=== PATIENT | male | born 1950 | race Caucasian/White ===

== ENCOUNTER 2017-11-29 13:18 | Observation (INO) | payer BC, MEDICARE ==
[2017-11-29 14:04] LABS: #Eosinphils 0.1 thou/uL (0.0-0.7); #Lymphocytes 1.3 thou/uL (1.20-3.40); #Monocytes 0.6 thou/uL (0.11-0.59); #Neutrophils 10.2 thou/uL (1.40-6.50); %Basophils 0.4 % (0.0-1.0); %Eosinophils 0.5 % (0.0-10.0); %Lymphocytes 10.7 % (21.0-51.0); %Monocytes 4.9 % (0.0-10.0); %Neutrophils 83.7 % (42.0-75.0); Hemoglobin 13.8 g/dL (14.0-18.0); Mean Corpuscular HGB CONC 32.5 g/dL (32.0-36.0); Mean Corpuscular Volume 95.4 fl (80.0-94.0); Mean Platelet Volume 6.8 fL (7.4-10.4); Platelet Count 292 thou/uL (130-400); RBC Distribution Width 11.7 % (11.5-14.5); Red Blood Cell (RBC) Count 4.46 mill/uL (4.70-6.10); White Blood Cell (WBC) Count 12.2 thou/uL (4.8-10.8)
[2017-11-29 14:30] LABS: ALT (SGPT) 32 U/L (8-55); AST (SGOT) 24 U/L (5-34); Albumin 4.6 g/dL (3.4-4.8); Alkaline Phosphatase 48 U/L (40-150); Anion Gap 16 mmol/L (10-20); BUN (Urea Nitrogen) 13 mg/dL (8.4-25.7); Bilirubin, Total 0.8 mg/dL (0.2-1.2); Calc. Creatinine Clearance 0 mL/min (70-130); Calcium 10.4 mg/dL (7.8-10.44); Carbon Dioxide 23 mmol/L (23-31); Chloride 104 mmol/L (98-107); Estimated GFR-MDRD 74; Globulin 3.2 g/dL (2.4-3.5); Glucose 161 mg/dL (80-115); Potassium 4.3 mmol/L (3.5-5.1); Protein, Total 7.8 g/dL (5.8-8.1); Sodium 139 mmol/L (136-145)
[2017-11-29] MEDS ORDERED: Ondansetron HCl/PF 4 MG/2 ML Vial ONE (15:53)
[2017-11-29 16:16] LABS: Bilirubin Negative (Negative); Blood, Urine Negative (Negative); Clarity CLEAR (Clear); Glucose, Urine (Dipstick) 250 mg/dL (Negative); Leukocyte Trace (Negative); Nitrite Negative (Negative); Protein, Urine (Dipstick) 100 mg/dL (Neg-Trace); Specific Gravity, Urine 1.027 (1.002-1.036); Urobilinogen 0.2 mg/dL (0.2-1.0); pH, Urine 5.5 (5.0-9.0)
[2017-11-29 16:16] LABS: PTT 29.3 SEC (22.9-36.1); Prothrombin Time 12.9 SEC (12.0-14.7)
[2017-11-29 16:18] LABS: Bacteria/HPF None Seen HPF (None Seen); Hyaline Casts/LPF 0-3 HYALINE CAST LPF (0-3 Hyaline); Pathc Cast-AUWi Flag 0.27 (0-2.49); Squamous Epithelial 0-3 HPF (0-3)
[2017-11-29 16:26] LABS: Amphetamine Not Detected (NotDetected); Barbiturates Screen Not Detected (NotDetected); Benzodiazepine Screen Not Detected (NotDetected); Cocaine Metabolite Screen Not Detected (NotDetected); Medtox Control Line Valid? VALID (VALID); Medtox Reader # READER 4; Methadone Not Detected (NotDetected); Methamphetamine Not Detected (NotDetected); Opiate Screen Not Detected (NotDetected); Oxycodone Screen Not Detected (NotDetected); Phencyclidine (PCP) Not Detected (NotDetected); THC/Cannabinoid Screen Not Detected (NotDetected); Tricyclic Screen Not Detected (NotDetected)
[2017-11-29 16:27] LABS: CKMB 6.1 ng/mL (0-6.6); Troponin I Less than 0.010 ng/mL (< 0.028)
--- NOTE | 2017-11-29 16:38 | RAD ---
AP VIEW OF THE CHEST: INDICATION: Vomiting and dizziness. IMPRESSION: No acute cardiopulmonary abnormality. The exam does not appear appreciably changed from comparison d ated 10/16/2014. Cardiomegaly is stable. No airspace opacity or pleural effusion is noted. No acut e osseous abnormality is evident. POS: [facility]
--- NOTE | 2017-11-29 17:19 | CT ---
CT OF THE BRAIN WITHOUT CONTRAST: INDICATION: Dizziness and vomiting since this morning. COMPARISON: None. FINDINGS: No acute infarct, hemorrhage, or hydrocephalus is present. The septum pellucidum and third ventricle are midline. There is mild chronic small vessel white matter ischemic change. There are prominent perivascular spaces along the inferior aspect of both globus pallidi. There is a mucus-retention cys t in the left maxillary sinus. The mastoid air cells are clear. There is an extraaxial partially ca lcified mass seen overlying the right frontal convexity measuring 7 mm suspicious for a small meningi sariah. This does not appear to be causing any significant underlying mass effect. IMPRESSION: 1. No acute intracranial abnormality. 2. Small calcified extraaxial mass overlying the right frontal convexity that may reflect a small men ingioma without significant associated mass effect. 3. Mild chronic small-vessel white matter ischemic change. 4. Mucus-retention cyst seen within the left maxillary sinus. POS: [facility]
[2017-11-29 17:53] LABS: Troponin I Less than 0.010 ng/mL (< 0.028)
[2017-11-29] MEDS ORDERED: Sodium Chloride 0.9% 1,000 ML IV SCH (18:45)
[2017-11-29] MEDS ORDERED: Senokot 8.6 MG TAB PO PRN ×2 (18:45→20:09)
[2017-11-29] MEDS ORDERED: HumaLOG 300 UNITS/3 ML VIAL SC PRN ×2 (18:45→20:09)
[2017-11-29] MEDS ORDERED: Ondansetron HCl/PF 4 MG/2 ML Vial IVP PRN ×2 (18:45→20:09)
[2017-11-29] MEDS ORDERED: Dextrose 50% Abboject 50 ML SYRINGE SLOW IVP PRN ×2 (18:45→20:07)
[2017-11-29] MEDS ORDERED: Guaifenesin DM 100-10/5 ML UDCUP PO PRN ×2 (18:45→20:08)
[2017-11-29] MEDS ORDERED: Acetaminophen 325 MG TAB PO PRN ×2 (18:45→20:06)
[2017-11-29] MEDS ORDERED: Dextrose 5% in Water 1,000 ML IV PRN ×2 (18:45→20:07)
[2017-11-29] MEDS ORDERED: Promethazine HCl 25 MG/ML VIAL IM/IV PRN ×2 (18:52→20:10)
--- NOTE | 2017-11-29 19:26 | HP ---
REASON FOR ADMISSION: Dizziness, dehydration, intractable nausea and vomiting. HISTORY OF PRESENT ILLNESS: The patient gives history of vomiting, nearly 21 times, this is mostly retching and spitting up, looks like. He has not been able to eat or drink anything from last evening. He managed to keep a cup of coffee this morning. He says 3 weeks back, he had flu and was put on antibiotics for [address] Valery Batista, his primary care physician. Since then, he has been not really well. He states if he closes his eyes, he feels nauseous at present. No complaints of any weakness in any of the extremities. No complaints of neck pain or stiffness. No chest pain, palpitation, PND, or orthopnea. Has not had any fever. Has some dry cough, but no expectoration. PAST MEDICAL AND SURGICAL HISTORY: History of diabetes mellitus type 2, dyslipidemia, benign prostatic hypertrophy, tonsillectomy. CURRENT MEDICATIONS: Metformin daily, pravastatin 40 mg at bedtime, Flomax 0.4 mg at bedtime. ALLERGIES: No known drug allergies. PERSONAL HISTORY: Does not abuse alcohol or drugs. No history of smoking. Lives with his , drives a truck. FAMILY HISTORY: Mom of emphysema and its complications at the age of 55 years. Father is still living and is 91 years old. REVIEW OF SYSTEMS: The following complete review of systems was negative, unless otherwise mentioned in the HPI or below: Constitutional: Weight loss or gain, ability to conduct usual activities. Skin: Rash, itching. Eyes: Double vision, pain. ENT/Mouth: Nose bleeding, neck stiffness, pain, tenderness. Cardiovascular: Palpitations, dyspnea on exertion, orthopnea. Respiratory: Shortness of breath, wheezing, cough, hemoptysis, fever or night sweats. Gastrointestinal: Poor appetite, abdominal pain, heartburn, nausea, vomiting, constipation, or diarrhea. Genitourinary: Urgency, frequency, dysuria, nocturia. Musculoskeletal: Pain, swelling. Neurologic/Psychiatric: Anxiety, depression. Allergy/Immunologic: Skin rash, bleeding tendency. PHYSICAL EXAMINATION: GENERAL: Patient is a 67-year-old male who is currently not in any acute distress. VITAL SIGNS: Blood pressure 144/94, pulse 90 per minute, respiratory rate 20 per minute, temperature 97.1 degrees Fahrenheit, saturating 95% on room air. NECK: Supple, no elevated JVD. HEENT: Extraocular muscles intact. Pupils are reacting to light. Oral cavity mucous membranes are dry. No exudates or congestion. CARDIOVASCULAR: S1, S2 heard. Regular rhythm. RESPIRATORY: Air entry 2+ bilateral. No rales or rhonchi. ABDOMEN: Soft, bowel sounds heard. No tenderness, rigidity or guarding. EXTREMITIES: No peripheral edema or calf tenderness. VASCULAR SYSTEM: Peripheral pulses 1+ bilateral. No ischemic ulcerations or gangrene. CENTRAL NERVOUS SYSTEM: No gross focal deficits seen. The patient is awake, alert, and oriented well. PSYCHIATRIC: The patient's mood is euthymic. No hallucinations or delusions. LABORATORY AND X-RAY FINDINGS: Influenza A and B antigens are negative. Chest x-ray done shows no acute infiltrate. CT brain shows no acute intracranial abnormality. There is a small calcified extraaxial mass over the right frontal convexity might reflect small meningioma without associated mass effect. Urine drug screen is negative. UA shows trace leukocyte esterase with 7-10 WBCs, no bacteria were seen. Troponin x2 is negative. Serum glucose 161. Serum chloride is 104, serum bicarbonate 23, BUN 13, creatinine 1.0. CK level is 340 , albumin is 4.6. White count of 12, H&H 13 and 42, platelet count is 292 with 83% neutrophils. CLINICAL IMPRESSION AND PLAN: The patient will be under observation on the stroke unit for intractable nausea and vomiting with [id number] dehydration and margination. We will place him on normal saline at 100 mL per hour. We will continue his home medications of aspirin, metformin, pravastatin , and Flomax as before. We will also obtain a lipase level. He will be on clear liquid diet for tonight and will advance his diet once his nausea and vomiting resolves. He will be on Zofran and Phenergan p.r.n. The patient does not appear to have any stroke clinically. Once he is able to tolerate solid food, he can be safely discharged home. KATHLEEN
[2017-11-29] MEDS: Famotidine/PF 20 mg/2ml Vial SLOW IVP SCH (20:35)
[2017-11-29] MEDS: Sodium Chloride 0.9% 1,000 ML IV SCH (20:35)
[2017-11-29] MEDS ORDERED: Famotidine/PF 20 mg/2ml Vial SLOW IVP SCH (21:00)
[2017-11-29] MEDS ORDERED: Tamsulosin HCl 0.4 MG CAP PO SCH (21:00)
[2017-11-29] MEDS ORDERED: Pravastatin Sodium 40 MG TAB PO SCH ×2 (21:00)
[2017-11-29 21:27] VITALS: BMI 34.5
[2017-11-30] MEDS: Sodium Chloride 0.9% 1,000 ML IV SCH (04:11)
[2017-11-30] MEDS ORDERED: metFORMIN 500 MG TAB PO SCH ×2 (08:00)
[2017-11-30 08:19] VITALS: BP 158/85; TEMP 98.1
[2017-11-30] MEDS ORDERED: Aspirin 81 mg Enteric Coated Tablet PO SCH ×2 (09:00)
[2017-11-30] MEDS ORDERED: Tamsulosin HCl 0.4 MG CAP PO SCH ×2 (09:00)
[2017-11-30] MEDS ORDERED: Enoxaparin Sodium 40 MG/0.4 ML SYRINGE SC SCH ×2 (09:00)
[2017-11-30] MEDS ORDERED: Prevnar 13-Val Conj/PF 0.5 ML SYRINGE IM ONE (09:00)
[2017-11-30] MEDS: Famotidine/PF 20 mg/2ml Vial SLOW IVP SCH (09:35)
--- NOTE | 2017-11-30 11:43 | PDOC.PN ---
- Subjective Encounter Start Date: 11/30/17 Encounter Start Time: 11:42 Patient seen and examined. No new complaints. No overnight events. wanna go home feels good. tolerating food well. wants to see neurology as outpt. - Objective Resuscitation Status: Resuscitation Status FULL:Full Resuscitation MAR Reviewed: Yes Vital Signs & Weight: Vital Signs (12 hours) Temp Pulse Resp BP Pulse Ox 11/30/17 07:36 98.1 F 92 16 158/85 H 94 L 11/30/17 07:20 98.3 F 100 14 11/30/17 04:12 98.3 F 100 14 161/93 H 94 L 11/29/17 23:55 98.4 F 98 14 135/74 95 Weight Weight 254 lb 12.8 oz I&O: 11/29/17 11/30/17 12/01/17 06:59 06:59 06:59 Intake Total 1480 1 Balance 1480 1 Result Diagrams: 11/29/17 13:54 11/29/17 13:54 Additional Labs: Accuchecks 11/30/17 11/30/17 11/29/17 10:55 04:17 20:58 POC Glucose 211 H 104 172 H Phys Exam - Physical Examination Constitutional: NAD HEENT: sclera anicteric Neck: supple Respiratory: no wheezing, no rales Cardiovascular: RRR Gastrointestinal: soft Musculoskeletal: no edema Neurological: non-focal, moves all 4 limbs Psychiatric: normal affect, A&O x 3 Dx/Plan (1) Dizziness Code(s): R42 - DIZZINESS AND GIDDINESS Status: Acute (2) Nausea & vomiting Code(s): R11.2 - NAUSEA WITH VOMITING, UNSPECIFIED Status: Acute (3) Diabetes mellitus Code(s): E11.9 - TYPE 2 DIABETES MELLITUS WITHOUT COMPLICATIONS Status: Acute (4) HTN (hypertension) Code(s): I10 - ESSENTIAL (PRIMARY) HYPERTENSION Status: Acute (5) Meningioma Code(s): D32.9 - BENIGN NEOPLASM OF MENINGES, UNSPECIFIED Status: Acute - Plan cont current plan of care * . Pt feeling better. wants to go home f/u with neurology at outpatient.
--- NOTE | 2017-11-30 19:01 | DIS ---
DATE OF ADMISSION: 11/29/2017 DATE OF DISCHARGE: 11/30/2017 DISCHARGE DIAGNOSES: 1. Dizziness, nausea, vomiting, and visual disturbances; resolved. 2. Type 2 diabetes. 3. Benign prostatic hypertrophy. 4. Hypertension. 5. Hyperlipidemia. 6. Meningioma. CONSULTATIONS: None. PROCEDURE: CT head with meningioma. HOSPITAL COURSE: This is a 67-year-old male with a history of type 2 diabetes, hyperlipidemia, and B PH came to the hospital with nausea, vomiting, and had 23 episodes of vomiting with some dehydration. He was admitted and overnight had hydration and was feeling better. The patient was able to tolera te food and will be sent home safely. The patient also had a CT scan, which was unremarkable except for a possible meningioma. The patient does not want to have any workup here. He wants to see his [facility] physician and will be seen by Neurology as outpatient. The patient wants to go home. DISCHARGE MEDICATIONS: Lisinopril 5 mg p.o. daily, metformin 500 mg p.o. b.i.d., tamsulosin 0.4 mg p .o. at bedtime, and Lipitor. ALLERGIES: No known drug allergies. DISCHARGE INSTRUCTIONS: Follow up with PCP in 1 week and possible Neurology followup with [facility] in 1-2 weeks for possible meningioma and visual disturbances, which happened only once. CONDITION ON DISCHARGE: Stable. DISPOSITION: To home. The patient voiced understanding and he wants to go home and work up symptoms otherwise with Neurology as outpatient.
== END 2017-11-30 12:48 | disposition home or self-care (01) ==
LOC: ERS 13:18 → 2SW 17:15 → ERS 18:57
PROVIDERS: ADMIT Internal Medicine; ATTEND Internal Medicine
DX: R42 Dizziness and giddiness (principal); R11.2 Nausea with vomiting, unspecified; E11.9 Type 2 diabetes mellitus without complications; N40.0 Benign prostatic hyperplasia without lower urinary tract symptoms; I10 Essential (primary) hypertension; E78.5 Hyperlipidemia, unspecified; D32.9 Benign neoplasm of meninges, unspecified; Z79.82 Long term (current) use of aspirin; Z79.84 Long term (current) use of oral hypoglycemic drugs; Z79.899 Other long term (current) drug therapy; Z90.49 Acquired absence of other specified parts of digestive tract; Z23 Encounter for immunization
CPT/HCPCS: 70450; 71010; 80053; 80306; 82550; 82553; 82962 ×2; 83690; 84484 ×2; 85025; 85610; 85730; 87804 ×2; 90670; 93005; 96361 ×3; 96372; 96374; 96375; 96376; 97139; 99285; G0009; G0378; 36415; 36416; 81003; 81015; 90471; A4216; J1650; J2405; S0028

== ENCOUNTER 2018-12-08 11:37 | Outpatient (CLI) | payer MEDICARE, MEDICAID ==
--- NOTE | 2018-12-08 13:51 | RAD ---
3 VIEWS LUMBAR SPINE: Date: 12/08/18 COMPARISON: None. HISTORY: Low back pain. FINDINGS: Five lumbar-type vertebral bodies are present with intact pedicles on frontal imaging. Lateral imagin g demonstrates normal vertebral body height and alignment. There is lower lumbar spine facet hypertro phic change. No acute osseous abnormality is noted. There is mild disc space narrowing and anterior o steophyte formation at L1-2. Degenerative change noted of bilateral hips, left greater than right. IMPRESSION: Mild degenerative change with no acute fracture or evidence of dislocation. If there are radicular sy mptoms, follow-up MRI suggested. POS: [facility]
== END 2018-12-08 11:38 | disposition home or self-care (01) ==
LOC: BICRAD 11:37
PROVIDERS: ATTEND Family Medicine
DX: M54.5 Low back pain (principal); M47.816 Spondylosis without myelopathy or radiculopathy, lumbar region
CPT/HCPCS: 72100

== ENCOUNTER 2023-11-15 14:50 | Emergency (ER) | payer MEDICARE, MEDICAID ==
[~2023-11-15 14:50] MED LIST: Iopamidol-370 76% 500 ML MDV (1 ML CHARGE) ONE
[2023-11-15 16:06] LABS: #Basophils 0.1 thou/uL (0.0-0.2); #Eosinphils 0.2 thou/uL (0.0-0.7); #Monocytes 0.8 thou/uL (0.11-0.59); #Neutrophils 6.7 thou/uL (1.40-6.50); %Basophils 0.5 % (0.0-1.0); %Eosinophils 1.7 % (0.0-10.0); %Lymphocytes 24.2 % (21.0-51.0); %Monocytes 7.6 % (0.0-10.0); %Neutrophils 65.5 % (42.0-75.0); Hematocrit 41.3 % (42.0-52.0); Hemoglobin 13.7 g/dL (14.0-18.0); Mean Corpuscular HGB CONC 33.2 g/dL (32.0-36.0); Mean Corpuscular Hemoglobin 30.3 pg (27.0-31.0); Mean Corpuscular Volume 91.4 fl (78.0-98.0); Mean Platelet Volume 10.3 fL (7.4-10.4); Platelet Count 288 10x3/uL (130-400); RBC Distribution Width 12.2 % (11.5-14.5); Red Blood Cell (RBC) Count 4.52 mill/uL (4.70-6.10); White Blood Cell (WBC) Count 10.3 10x3/uL (4.8-10.8)
[2023-11-15 16:10] LABS: Bacteria/HPF None Seen HPF (None Seen); Bilirubin Negative (Negative); Blood, Urine Negative (Negative); CAUTI Indications for Culture Dysuria,urgency,freq; Clarity Clear (Clear); Glucose, Urine (Dipstick) Greater than 1000 mg/dL (Negative); Ketone, Urine Negative (Negative); Leukocyte Negative Leu/uL (Negative); Nitrite Negative (Negative); Protein, Urine (Dipstick) 20 mg/dL (Neg-Trace); RBC/HPF 0-3 HPF (0-3); Squamous Epithelial 0-3 HPF (0-3); Urobilinogen Normal mg/dL (Less than 2); WBC/HPF 0-3 HPF (0-3); pH, Urine 5.5 (5.0-9.0)
[2023-11-15 16:12] LABS: Urine Culture Reflex No No
[2023-11-15] MEDS ORDERED: Morphine 4 MG/ML VIAL ONE ×2 (16:17→18:04)
[2023-11-15] MEDS ORDERED: Ondansetron PF 4 MG/2 ML Vial ONE (16:17)
[2023-11-15 16:34] LABS: ALT (SGPT) 18 U/L (8-55); AST (SGOT) 15 U/L (5-34); Albumin 4.7 g/dL (3.4-4.8); Alkaline Phosphatase 46 U/L (40-110); Anion Gap 15 mmol/L (10-20); BUN (Urea Nitrogen) 16 mg/dL (8.4-25.7); Bilirubin, Total 1.5 mg/dL (0.2-1.2); Calc. Creatinine Clearance 0 mL/min (70-130); Calcium 10.2 mg/dL (7.8-10.44); Carbon Dioxide 24 mmol/L (23-31); Chloride 105 mmol/L (98-107); Estimated GFR 65; Globulin 2.8 g/dL (2.4-3.5); Glucose 192 mg/dL (83-110); Lipase 31 U/L (8-78); Potassium 3.9 mmol/L (3.5-5.1); Protein, Total 7.5 g/dL (5.8-8.1); Sodium 140 mmol/L (136-145)
[2023-11-15] MEDS ORDERED: Lidocaine 2% 6 ML (Jelly) SYR ONE (18:05)
== END 2023-11-15 19:16 | disposition home or self-care (01) ==
LOC: ERS 14:50
DX: R33.9 Retention of urine, unspecified (principal); N28.89 Other specified disorders of kidney and ureter; I10 Essential (primary) hypertension; E11.9 Type 2 diabetes mellitus without complications
CPT/HCPCS: 51702; 74177; 80053; 81001; 83690; 85025; 93005; 96361; 96374; 96375; 96376; J2270; J2405; Q9967

== ENCOUNTER 2024-08-20 11:47 | Outpatient (CLI) | payer OTHER, MEDICAID ==
[~2024-08-20 11:47] MED LIST changes: +Iopamidol 370 76% 100 ML VIAL ONE; -Iopamidol-370 76% 500 ML MDV (1 ML CHARGE) ONE
== END 2024-08-20 11:48 | disposition home or self-care (01) ==
LOC: CT 11:47
PROVIDERS: ATTEND Urology
DX: N28.89 Other specified disorders of kidney and ureter (principal); K80.20 Calculus of gallbladder without cholecystitis without obstruction; E27.8 Other specified disorders of adrenal gland
CPT/HCPCS: 36415; 74170; 82565; Q9967

== ENCOUNTER 2024-09-09 12:56 | Outpatient (CLI) | payer OTHER, MEDICAID | END 2024-09-09 12:57 | disposition home or self-care (01) | LOC: CT 12:56 | PROVIDERS: ATTEND Urology | DX: N28.89 Other specified disorders of kidney and ureter (principal); E04.2 Nontoxic multinodular goiter; K80.20 Calculus of gallbladder without cholecystitis without obstruction | CPT/HCPCS: 36415; 71260; 82565; Q9967 ==

== ENCOUNTER 2024-12-03 11:12 | Inpatient (IN) | payer OTHER, MEDICAID ==
[2024-12-03 13:58] LABS: Bilirubin Negative (Negative); Blood, Urine 2+ (Negative); CAUTI Indications for Culture Dysuria,urgency,freq; Clarity Turbid (Clear); Glucose, Urine (Dipstick) Normal (Negative); Ketone, Urine Negative (Negative); Leukocyte 500 Leu/uL (Negative); Nitrite Negative (Negative); Protein, Urine (Dipstick) 20 mg/dL (Neg-Trace); RBC/HPF 0-3 HPF (0-3); Specific Gravity, Urine 1.012 (1.002-1.036); Squamous Epithelial 0-3 HPF (0-3); Urobilinogen Normal mg/dL (Less than 2); WBC/HPF 21-50 HPF (0-3)
[2024-12-03 13:59] LABS: Bacteria/HPF 1+ HPF (None Seen)
[2024-12-03 14:00] LABS: Urine Culture Reflex Yes Yes
[2024-12-03 14:14] LABS: #Basophils 0.08 10x3/uL (0.0-0.2); %Basophils 0.8 % (0.0-1.0); %Eosinophils 2.4 % (0.0-10.0); %Lymphocytes 19.9 % (21.0-51.0); Hematocrit 41.2 % (42.0-52.0); Hemoglobin 12.4 g/dL (14.0-18.0); Mean Corpuscular HGB CONC 30.1 g/dL (32.0-36.0); Mean Corpuscular Volume 96.3 fL (78.0-98.0); Mean Platelet Volume 9.8 fL (7.4-10.4); Platelet Count 405 10x3/uL (130-400); RBC Distribution Width 13.8 % (11.5-14.5); Red Blood Cell (RBC) Count 4.28 mill/uL (4.70-6.10)
[2024-12-03 14:34] LABS: ALT (SGPT) 70 U/L (8-55); AST (SGOT) 52 U/L (5-34); Albumin 3.1 g/dL (3.4-4.8); Alkaline Phosphatase 162 U/L (40-110); Anion Gap 19 mmol/L (10-20); BUN (Urea Nitrogen) 31 mg/dL (8.4-25.7); Bilirubin, Total 0.6 mg/dL (0.2-1.2); Calc. Creatinine Clearance 0 mL/min (70-130); Calcium 10.2 mg/dL (7.8-10.44); Carbon Dioxide 14 mmol/L (23-31); Chloride 108 mmol/L (98-107); Estimated GFR 29; Globulin 5.1 g/dL (2.4-3.5); Glucose 157 mg/dL (83-110); Lipase 66 U/L (8-78); Potassium 4.8 mmol/L (3.5-5.1); Protein, Total 8.2 g/dL (5.8-8.1); Sodium 136 mmol/L (136-145)
[2024-12-03] MEDS ORDERED: Cefepime 1 GM VIAL ONE (15:37)
[2024-12-03] MEDS ORDERED: Sodium Chloride 0.9% 100 ML ONE ×2 (15:37→15:48)
[2024-12-03] MEDS ORDERED: cefTRIAXone (ROCEPHIN) 1 GM VIAL ONE (15:48)
[2024-12-03] MEDS ORDERED: Acetaminophen 325 MG TAB PO PRN (16:54)
[2024-12-03] MEDS ORDERED: traMADol HCl 50 MG TAB PO PRN ×2 (16:54)
[2024-12-03] MEDS ORDERED: Ondansetron PF 4 MG/2 ML Vial IVP PRN (16:54)
[2024-12-03] MEDS ORDERED: Bisacodyl 5 MG TAB PO PRN (16:54)
[2024-12-03] MEDS ORDERED: Dextrose 50% Abboject 50 ML SYRINGE SLOW IVP PRN (16:58)
[2024-12-03] MEDS ORDERED: Dextrose 5% in Water 1,000 ML IV PRN (16:58)
[2024-12-03] MEDS ORDERED: Glucagon 1 MG/ML KIT IM PRN (16:58)
[2024-12-03] MEDS: Amlodipine 5 MG TAB PO SCH (17:34)
[2024-12-03 17:50] VITALS: BMI 30.8
[2024-12-03] MEDS: Heparin 5,000 UNITS/ML VIAL SC SCH (20:54)
[2024-12-03] MEDS: Sodium Bicarbonate Tab 325 MG TAB PO SCH (20:54)
[2024-12-03] MEDS: Insulin Lispro 100 UNIT/ML 10 ML VIAL SC PRN (20:56)
[2024-12-04] MEDS: Amlodipine 5 MG TAB PO SCH (08:12)
[2024-12-04 09:36] LABS: #Basophils 0.05 10x3/uL (0.0-0.2); %Basophils 0.5 % (0.0-1.0); %Eosinophils 2.5 % (0.0-10.0); %Lymphocytes 17.1 % (21.0-51.0); %Monocytes 9.8 % (0.0-10.0); %Neutrophils 68.3 % (42.0-75.0); Hematocrit 34.7 % (42.0-52.0); Hemoglobin 11.1 g/dL (14.0-18.0); Mean Corpuscular Hemoglobin 29.4 pg (27.0-31.0); Mean Corpuscular Volume 91.8 fL (78.0-98.0); Mean Platelet Volume 9.1 fL (7.4-10.4); Platelet Count 390 10x3/uL (130-400); RBC Distribution Width 13.4 % (11.5-14.5); Red Blood Cell (RBC) Count 3.78 mill/uL (4.70-6.10)
[2024-12-04 10:05] LABS: Anion Gap 13 mmol/L (10-20); BUN (Urea Nitrogen) 28 mg/dL (8.4-25.7); Calc. Creatinine Clearance 47 mL/min (70-130); Calcium 9.5 mg/dL (7.8-10.44); Carbon Dioxide 21 mmol/L (23-31); Chloride 106 mmol/L (98-107); Estimated GFR 34; Glucose 221 mg/dL (83-110); Potassium 4.4 mmol/L (3.5-5.1); Sodium 136 mmol/L (136-145)
[2024-12-04] MEDS: cefTRIAXone\\ROCEPHIN 1 GM in Sodium Chloride 0.9% 100 ML IVPB SCH (16:16)
[2024-12-05 05:39] LABS: #Basophils 0.07 10x3/uL (0.0-0.2); %Basophils 0.7 % (0.0-1.0); %Eosinophils 3.2 % (0.0-10.0); %Lymphocytes 22.5 % (21.0-51.0); %Monocytes 9.7 % (0.0-10.0); %Neutrophils 61.9 % (42.0-75.0); Hematocrit 34.4 % (42.0-52.0); Hemoglobin 10.9 g/dL (14.0-18.0); Mean Corpuscular HGB CONC 31.7 g/dL (32.0-36.0); Mean Corpuscular Hemoglobin 28.7 pg (27.0-31.0); Mean Corpuscular Volume 90.5 fL (78.0-98.0); Platelet Count 426 10x3/uL (130-400); RBC Distribution Width 13.3 % (11.5-14.5)
[2024-12-05 05:52] LABS: Anion Gap 12 mmol/L (10-20); BUN (Urea Nitrogen) 23 mg/dL (8.4-25.7); Calc. Creatinine Clearance 44 mL/min (70-130); Calcium 9.4 mg/dL (7.8-10.44); Carbon Dioxide 23 mmol/L (23-31); Chloride 106 mmol/L (98-107); Estimated GFR 31; Glucose 153 mg/dL (83-110); Potassium 4.3 mmol/L (3.5-5.1); Sodium 137 mmol/L (136-145)
[2024-12-05 11:44] VITALS: BP 130/82; TEMP 98.2
== END 2024-12-05 12:21 | disposition home or self-care (01) | DRG 683 ==
LOC: ERS 11:12 → T4-B 15:50
PROVIDERS: ADMIT Internal Medicine; ATTEND Internal Medicine
DX: N17.9 Acute kidney failure, unspecified (principal); E87.20 Acidosis, unspecified; N39.0 Urinary tract infection, site not specified; I12.9 Hypertensive chronic kidney disease with stage 1 through stage 4 chronic kidney disease, or unspecified chronic kidney disease; N28.1 Cyst of kidney, acquired; D64.9 Anemia, unspecified; N18.30 Chronic kidney disease, stage 3 unspecified; E11.9 Type 2 diabetes mellitus without complications; N40.0 Benign prostatic hyperplasia without lower urinary tract symptoms; E78.5 Hyperlipidemia, unspecified; E66.9 Obesity, unspecified; Z90.5 Acquired absence of kidney; Z85.528 Personal history of other malignant neoplasm of kidney; Z79.82 Long term (current) use of aspirin; Z79.890 Hormone replacement therapy
CPT/HCPCS: 36415; 36416; 76770; 80048; 80053; 81001; 83690; 84439; 84443; 85025; 87077; 87086; 87186; 87428; 96374; J0692; J0696; J1644; J1815